=== PATIENT | female | born 1960 | race Caucasian/White ===

== ENCOUNTER → 2021-12-03 | Day surgery (SDC) | payer BC ==
[~2021-12-03] MED LIST: ALBU2.5V8 IH; ALPR0.5T6 PO; AMLO-186 PO; IPRATRPIUM/ALBUTEROL 0.5/2.5MG 3 ML NEBU. NEB PRN; IV RINGERS SOLUTION,LACTATED 1,000 ML IV SCH; LIDOCAINE 2% PF 5 ML VIAL. ONE; LISI20TA18 PO; LOVA40TA2 PO; MIDAZOLAM HCL PF 2 MG/2 ML VIAL. IV ONE; OMEG1CAP6 PO; ONDANSETRON PF 4 MG/2 ML VIAL. IV PRN; ONDANSETRON PF 4 MG/2 ML VIAL. ONE; POTA-112 PO; PROPOFOL 10,000 MCG/ML (20ML) VIAL IV ONE; SERT100T PO; TRIA1TAB3 PO
--- NOTE | 2021-12-03 09:28 | PDOC1 ---
History of Present Illness Reason for Visit: Screening colonoscopy History of Present Illness 60-year-old female has never had a colonoscopy. Denies any colon problems here for screening colonoscopy Chief Complaint: Screening colonoscopy Allergies: Coded Allergies: latex (Verified Allergy, Mild, rash, 12/03/21) rash occasionally when working with latex gloves Past Medical History Cardiac: No pertinent hx Pulmonary: No pertinent hx GI: No pertinent hx Heme/Onc: No pertinent hx Hepatobiliary: No pertinent hx Psych: No pertinent hx Musculoskeletal: No pertinent hx Rheumatologic: No pertinent hx Infectious disease: No pertinent hx ENT: No pertinent hx Renal/: No pertinent hx Endocrine: No pertinent hx Dermatology: No pertinent hx Past Surgical History: No pertinent history Family History: No pertinent hx Past Social History Smoke: No Alcohol: rare Drugs: None Lives: with Family Review of Systems Review Of Systems Fourteen system , review of systems has been reviewed. See HPI for pertinent positives and negative responses, other mei all other systems are negative, non pertinent or non contributory Constitutional: No: Fever, Chills, Sweats, Weakness, Malaise, Other Eyes: No: Blurry vision, Decreased vision, Double vision, Dry eyes, Excessive tearing, Eye Pain, Itchy Eyes, Loss of vision, Photophobia, Scotomata, Uses contacts, Uses glasses, Other ENT: No: Ear pain, Ear discharge, Nose pain, Nose discharge, Nose congestion, Mouth pain, Mouth swelling, Throat pain, Throat swelling, Other Respiratory: No: Cough, Hemoptysis, Orthopnea, Pleuritic Pain, Shortness of breath, SOB with excertion, Sputum Changes, Stridor, Tachypnea, Wheezing, Other Cardiovascular: No: Chest Pain, Palpitations, Orthopnea, Paroxysmal Noc. Dy spnea, Edema, Lt Headedness, Other Gastrointestinal: No: Nausea, Vomiting, Abdominal Pain, Diarrhea, Constipation, Melena, Hematochezia, Other Genitourinary: No: Change in Menstrual Cycle, Dysmenorrhea, Dyspareunia, Dysuria, Flank Pain, Genital Discharge, Genital Ulcers, Henaturia, Incontinence, Irregular/heavy Menses, Nocturia, Pelvic Pain, Scrotal Mass/pain, Slowing Urinary Stream, Urinary Frequency/urgency, Vulvar/vaginal Symptoms, Other Musculoskeletal: No: Gait Disturbance, Joint Pain, Joint Stiffness, Joint Swelling, Muscle Pain, Muscular Weakness, Pain In:, Swelling In:, Other SKIN: No: Warm, Dry, No Rashes, Cool, Diaphoretic, Cyanotic, Rash, Other Neurological: No: Behavorial Changes, Bowel/Bladder ControlChng, Confusion, Dizziness, Gait Disturbance, Headaches, Impaired Coord/balance, Memory Loss, Numbness/Tingling, Seizures, Speech Problems, Tremors, Visual Changes, Weakness, Other Medications Current Medications Ondansetron HCl (Zofran) 4 mg PRN Q6HRS PRN IV Nausea, 1st Choice; Start 12/03/21 at 07:00; Stop 12/03/21 at 23:00 Albuterol/ Ipratropium (Duoneb) 3 ml 1X PRN PRN NEB Shortness of Breath; Start 12/03/21 at 07:00; Stop 12/03/21 at 23:00 Midazolam HCl (Versed) 2 mg 1X ONCE IV ; Start 12/03/21 at 07:00; Stop 12/03/21 at 07:08; Status DC Lactated Ringer's 1,000 ml @ 125 mls/hr Q8H IV Last administered on 12/03/21at 09:05; Start 12/03/21 at 07:00; Stop 12/03/21 at 18:59 Active Scripts Active Reported Fish Oil 1,000 Mg Capsule (Yancey-3 Fatty Acids/Fish Oil) 1 Each Capsule 1 Each PO DAILY Zoloft (Sertraline Hcl) 100 Mg Tablet 1 Tab PO DAILY Proair Hfa Inhaler (Albuterol Sulfate) 8.5 Gm Hfa.aer.ad 2 Puff IH PRN Q4-6HRS PRN 21 Days Lovastatin 40 Mg Tablet 2 Tab PO DAILY Triamterene-Hctz 37.5-25 Mg Tb (Triamterene/Hydrochlorothiazid) 1 Each Tablet 1 Tab PO DAILY Klor-Con 10 (Potassium Chloride) 10 Meq Tablet.er 1 Tab PO BID 30 Days Lisinopril 20 Mg Tablet 1 Tab PO DAILY Amlodipine Besylate 5 Mg Tablet 1 Tab PO DAILY Alprazolam 0.5 Mg Tablet 1 Tab PO TID Exam Vital Signs Vital Signs Date Time Temp Pulse Resp B/P (MAP) Pulse Ox O2 Delivery O2 Flow Rate FiO2 12/03/21 09:06 99.5 96 20 136/77 (96) 95 Room Air General Appearance: Alert, Oriented X3, Cooperative, No acute distress HEENT: Atraumatic, PERRLA, EOMI Respiratory: Clear to auscultation, Normal air movement Heart: Regular rate, No murmurs Abdominal: Normal bowel sounds, Soft, No tenderness Extremities: No edema Skin: No significant lesion Neuro: Normal speech Psych/Mental Status: Mental status NL Assessment/Plan Assessment/Plan Colon cancer screening colonoscopy COURSE Allergies Coded Allergies Type Severity Reaction Last Updated Verified latex Allergy Mild rash 12/03/21 Yes Current Medications Medications (Trade) Dose Ordered Sig/Anjali Route PRN Reason Start Time Stop Time Status Last Admin Dose Admin Ondansetron HCl (Zofran) 4 mg PRN Q6HRS PRN IV Nausea, 1st Choice 12/03/21 07:00 12/03/21 23:00 Albuterol/ Ipratropium (Duoneb) 3 ml 1X PRN PRN NEB Shortness of Breath 12/03/21 07:00 12/03/21 23:00 Midazolam HCl (Versed) 2 mg 1X ONCE IV 12/03/21 07:00 12/03/21 07:08 DC Lactated Ringer's 1,000 ml @ 125 mls/hr Q8H IV 12/03/21 07:00 12/03/21 18:59 12/03/21 09:05 Orders Procedure Category Date Status Time Vital Signs, Per [facility] 12/03/21 In Process Protocol 06:56 Pulse Oximetry: [facility] 12/03/21 In Process 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 12/03/21 In Process Pre-Op Pr 06:56 Midazolam Hcl Pf PHA 12/03/21 Complete (Versed) 07:00 Vital Signs, Per [facility] 12/03/21 In Process Protocol 06:56 Pulse Ox - [facility] 12/03/21 In Process Intermittent 06:56 Iv Ringers PHA 12/03/21 In Process Solution,Lactated (Iv 07:00 Vital Signs Date Time Temp Pulse Resp B/P (MAP) Pulse Ox O2 Delivery O2 Flow Rate FiO2 12/03/21 09:06 99.5 96 20 136/77 (96) 95 Room Air Justification of Admission: Justification of Admission: Justification of Admission Dx: N/A ANNAMARIA KOHLER MD December 03, 2021 09:28
[2021-12-03 10:32] VITALS: BP 127/81
--- NOTE | 2021-12-05 17:15 | PATHOLOGY ---
[facility] Accession Number: [id number] . 01 Material submitted: . PART A: colon - COLON POLYP AT 45 CM HOT SNARE PART B: colon - COLON POLYP AT 40 CM- HOT SNARE PART C: colon - COLON POLYP AT 15 CM- HOT SNARE PART D: rectum - COLON POLYP RECTUM BIOPSY . 01 Clinical history: . SCREENING FOR COLON CANCER . 02 Diagnosis: A. Colon biopsy, polyp at 45 cm: - Tubular adenoma. . B. Colon biopsies, polyp at 40 cm: - Sessile serrated polyp/adenoma. . C. Colon biopsy, polyp at 15 cm: - Tubular adenoma. . D. Colorectal biopsies, polyp rectum: - Hyperplastic polyp. ([facility]:sarahy; 12/05/2021) [facility] 12/05/2021 [id number] Local . 02 Comment: There is no high-grade dysplasia or evidence of malignancy. ([facility]:sarayh; 12/05/2021) . 02 Electronically signed: . Aron Acosta MD, Pathologist NPI- [id number] . 01 Gross description: . A. The specimen is received in formalin, labeled "Farideh George", "colon polyp at 45 cm". Received is a single segment of pale landa tissue measuring 0.3 cm. The specimen is entirely submitted in cassette A1. . B. The specimen is received in formalin, labeled "Raffaele Georgea", "colon polyp at 40 cm". Received are 2 segments of pale landa tissue measuring 0.6 and 0.7 cm. The specimen is entirely submitted in cassette B1. . C. The specimen is received in formalin, labeled "Farideh George", "colon polyp at 15 cm". Received is a single polypoid segment of pale landa tissue measuring 1.2 x 1.0 x 0.5 cm. The cauterized margin is inked black. The specimen is bisected and entirely submitted in cassette C1. . D. The specimen is received in formalin, labeled "Farideh George", "colon polyp rectum biopsy". Received are multiple segments of pale landa tissue ranging in size from 0.2 cm to 0.4 cm. The specimen is entirely submitted in cassette D1.([facility]; 12/04/2021) [facility]/MIO 12/04/2021 [facility] Local . 02 Pathologist provided ICD-10: D12.6, D12.8 . 02 CPT . 324770, 580117, [id number], [id number] Specimen Comment: A courtesy copy of this report has been sent to [phone] Specimen Comment: Report sent to Performed at: [facility] [address], [place] [id number] MD Lennox Arrington MD Phone: [phone] Performed at: [facility] [address] [place], [place] [id number] MD Aron Acosta MD Phone: [phone]
== END | disposition home or self-care (01) ==
LOC: SURG 08:37
PROVIDERS: ATTEND Surgery
DX: Z12.11 Encounter for screening for malignant neoplasm of colon (principal); D12.6 Benign neoplasm of colon, unspecified; D12.8 Benign neoplasm of rectum; K63.89 Other specified diseases of intestine; I10 Essential (primary) hypertension; E66.9 Obesity, unspecified; K21.9 Gastro-esophageal reflux disease without esophagitis; E78.00 Pure hypercholesterolemia, unspecified; Z72.89 Other problems related to lifestyle; Z91.040 Latex allergy status; Z79.899 Other long term (current) drug therapy
CPT/HCPCS: 45380; 45385; J2001; J2405; J2704; J7120